=== PATIENT | male | born 1960 | race Caucasian/White ===

== ENCOUNTER 2019-07-23 16:59 | Emergency (ER) | payer OTHER ==
[~2019-07-23] VITALS: Ht 152.4 cm; Wt 84.8 kg
[2019-07-23 17:08] VITALS: BP 168/90
== END 2019-07-23 18:40 | disposition home or self-care (01) ==
LOC: ED 16:59
DX: S61.214A Laceration without foreign body of right ring finger without damage to nail, initial encounter (principal); W31.89XA Contact with other specified machinery, initial encounter; Y93.89 Activity, other specified; Y92.89 Other specified places as the place of occurrence of the external cause; Y99.8 Other external cause status
CPT/HCPCS: A4570; J2001; Q0092

== ENCOUNTER 2019-07-28 13:42 | Emergency (ER) | payer OTHER ==
[~2019-07-28] VITALS: Ht 160 cm; Wt 80.7 kg
[2019-07-28 14:04] VITALS: Ht 160 cm; Wt 80.7 kg
[2019-07-28 15:21] VITALS: BP 125/102
== END 2019-07-28 15:21 | disposition home or self-care (01) ==
LOC: ED 13:42
DX: M79.645 Pain in left finger(s) (principal); Z48.01 Encounter for change or removal of surgical wound dressing; Z89.022 Acquired absence of left finger(s)

== ENCOUNTER 2019-08-01 13:37 | Emergency (ER) | payer OTHER ==
[~2019-08-01] VITALS: Ht 160 cm; Wt 80.7 kg
[2019-08-01 13:53] VITALS: BP 170/89; Ht 160 cm; Wt 80.7 kg
== END 2019-08-01 15:48 | disposition home or self-care (01) ==
LOC: ED 13:37
DX: Z89.021 Acquired absence of right finger(s) (principal); M79.644 Pain in right finger(s)